=== PATIENT | female | born 1950 | race Caucasian/White ===

== ENCOUNTER → 2018-05-11 | Outpatient (CLI) | payer MEDICARE, OTHER ==
[~2018-05-11] MED LIST: LIPITOR
== END | disposition home or self-care (01) ==
LOC: LAB SHORT 10:53 → LAB EV 10:53
DX: R39.15 Urgency of urination (principal)
CPT/HCPCS: 87077; 87086; 87186

== ENCOUNTER 2018-09-30 10:32 | Emergency (ER) | payer MEDICARE, OTHER ==
[~2018-09-30] VITALS: Ht 165.1 cm; Wt 78.9 kg
== END 2018-09-30 14:11 | disposition home or self-care (01) ==
LOC: ER 10:32
DX: S06.0X0A Concussion without loss of consciousness, initial encounter (principal); R42 Dizziness and giddiness; W22.8XXA Striking against or struck by other objects, initial encounter; Z79.899 Other long term (current) drug therapy; I10 Essential (primary) hypertension; Z87.891 Personal history of nicotine dependence
CPT/HCPCS: 70450; 99284-25

== ENCOUNTER 2019-04-14 10:16 | Day surgery (SDC) | payer MEDICARE, OTHER ==
[~2019-04-14] VITALS: Ht 165.1 cm; Wt 75.4 kg
[2019-04-14] MEDS ORDERED: METO25ER (11:07)
[2019-04-14] MEDS ORDERED: ROSU10TA (11:07)
[2019-04-14] MEDS ORDERED: LEVSOD75 (11:07)
[2019-04-14] MEDS ORDERED: ASPI81CH (11:07)
== END 2019-04-14 12:07 | disposition home or self-care (01) ==
LOC: ORSCSDS 10:16
PROVIDERS: Internal Medicine Gastroenterology
PROC: 0DBL8ZX Excision of Transverse Colon, Via Natural or Artificial Opening Endoscopic, Diagnostic (ICD-10-PCS; principal; 2019-04-14 11:30)
DX: Z12.11 Encounter for screening for malignant neoplasm of colon (principal); D12.3 Benign neoplasm of transverse colon; K64.8 Other hemorrhoids; K57.30 Diverticulosis of large intestine without perforation or abscess without bleeding; Z86.010 Personal history of colon polyps; E78.5 Hyperlipidemia, unspecified; E03.9 Hypothyroidism, unspecified; Z87.891 Personal history of nicotine dependence; Z79.82 Long term (current) use of aspirin; Z79.899 Other long term (current) drug therapy
CPT/HCPCS: 88305; J2704; J7120

== ENCOUNTER → 2019-06-06 | Outpatient (CLI) | payer MEDICARE, OTHER ==
[~2019-06-06] MED LIST changes: +ASPI81CH; +LEVSOD75; +METO25ER; +ROSU10TA
[2019-06-08 15:07] LABS: HPV 16 Negative (Negative); HPV 18 Negative (Negative); HPV OTHER HR TYPES Negative (Negative)
== END | disposition home or self-care (01) ==
LOC: LAB SHORT 17:53 → LAB 17:53
PROVIDERS: Obstetrics & Gynecology Gynecology
DX: Z91.89 Other specified personal risk factors, not elsewhere classified (principal)
CPT/HCPCS: 87624; G0123

== ENCOUNTER 2021-08-23 08:31 | Emergency (ER) | payer MEDICARE, OTHER | END 2021-08-23 09:20 | disposition home or self-care (01) | LOC: ER 08:31 | DX: J06.9 Acute upper respiratory infection, unspecified (principal); I10 Essential (primary) hypertension; Z79.899 Other long term (current) drug therapy; Z87.891 Personal history of nicotine dependence | CPT/HCPCS: 99282 ==

== ENCOUNTER 2021-10-02 10:52 | Emergency (ER) | payer MEDICARE, OTHER ==
[~2021-10-02] VITALS: Ht 165.1 cm; Wt 76.7 kg
[2021-10-02] MEDS ORDERED: TIZA4 PO (11:56)
== END 2021-10-02 12:12 | disposition home or self-care (01) ==
LOC: ER 10:52
DX: M62.830 Muscle spasm of back (principal); Z79.899 Other long term (current) drug therapy; Z79.82 Long term (current) use of aspirin; I10 Essential (primary) hypertension; Z87.891 Personal history of nicotine dependence
CPT/HCPCS: 72080; 96372; 99283-25; J1885

== ENCOUNTER → 2025-03-26 | Outpatient (CLI) | payer MEDICARE, OTHER ==
[~2025-03-26] MED LIST changes: +TIZA4 PO
[2025-03-26 16:52] LABS: Source, Urine Voided
[2025-03-26 19:06] LABS: Bilirubin, Urine Neg (Neg); Glucose Qualitative, Urine Neg (Neg); Ketones, Urine Neg (Neg); Leukocyte Esterase, Urine 1+ (Neg); Protein, Urine 2+ (Neg); Specific Gravity, Urine 1.025 (1.003-1.022); Urobilinogen, Urine NORM (Normal)
[2025-03-26 19:35] LABS: Color, Urine Pale Yellow (P-Yellow)
== END ==
LOC: LAB 09:30 → LAB SHORT 09:30
PROVIDERS: Internal Medicine
DX: I12.9 Hypertensive chronic kidney disease with stage 1 through stage 4 chronic kidney disease, or unspecified chronic kidney disease (principal); N18.31 Chronic kidney disease, stage 3a
CPT/HCPCS: 81001; 87086